=== PATIENT | male | born 1965 | race Caucasian/White ===

== ENCOUNTER 2018-07-20 10:09 | Emergency (ER) | payer SELFPAY ==
[~2018-07-20] VITALS: Ht 180.3 cm; Wt 110.2 kg
[2018-07-20 10:27] VITALS: BP 120/75
[2018-07-20] MEDS ORDERED: NEURONTIN100 MG ORAL (10:27)
[2018-07-20] MEDS ORDERED: Mylanta II UD 30ml ORAL ONE (11:00)
[2018-07-20] MEDS ORDERED: Lidocaine 2% Visc 15ml soln ORAL ONE (11:00)
[2018-07-20] MEDS ORDERED: Dicyclomine HCl 10mg/5ml oral soln ORAL ONE (11:00)
[2018-07-20 11:15] LABS: BASOPHILS % (AUTO) 1.5 % (0.0-2.0); EOSINOPHILS % (AUTO) 2.7 % (0.0-3.0); HEMATOCRIT 40.2 % (42.0-52.0); HEMOGLOBIN 13.3 G/DL (14.2-18.0); LYMPHOCYTES % (AUTO) 23.2 % (20.0-45.0); MEAN CORPUSCULAR VOLUME 90 FL (80-99); NEUTROPHILS % (AUTO) 62.6 % (45.0-75.0); PLATELET COUNT 252 K/UL (150-450); RED BLOOD COUNT 4.48 M/UL (4.70-6.10); RED CELL DISTRIBUTION WIDTH 13.3 % (11.6-14.8); WHITE BLOOD COUNT 9.1 K/UL (4.8-10.8)
[2018-07-20 11:23] LABS: ANION GAP 10 mmol/L (5-15); BLOOD UREA NITROGEN 18 mg/dL (7-18); CALCIUM 7.8 MG/DL (8.5-10.1); CARBON DIOXIDE 24 MMOL/L (21-32); CHLORIDE 105 MMOL/L (98-107); CREATININE 1.5 MG/DL (0.55-1.30); POTASSIUM 5.2 MMOL/L (3.5-5.1); SODIUM 139 MMOL/L (136-145)
[2018-07-20 11:29] LABS: ALANINE AMINOTRANSFERASE 29 U/L (12-78); ALBUMIN 3.1 G/DL (3.4-5.0); ALBUMIN/GLOBULIN RATIO 0.9 (1.0-2.7); ALKALINE PHOSPHATASE 53 U/L (46-116); ASPARTATE AMINO TRANSFERASE 26 U/L (15-37); BILIRUBIN,TOTAL 0.2 MG/DL (0.2-1.0)
[2018-07-20] MEDS ORDERED: RANITIDINE HCL150 MG ORAL (12:04)
[2018-07-20] MEDS ORDERED: ONDANSETRON ODT4 MG BC (12:04)
[2018-07-20 12:16] VITALS: BP 128/80
--- NOTE | 2018-07-21 14:33 | Emergency Room Report ---
History of Present Illness General Chief Complaint: Diarrhea Source: Patient Present Illness HPI 53-year-old male presents ED for evaluation. Patient coming from rehabilitation facility with abdominal pain and diarrhea the last 3 days. Pain is cramping, 8 out of 10, nonradiating. Notes episodes of diarrhea. Denies vomiting. Notes nausea. Denies fevers chills. States that he withdrawing from crack use 3 days. Was told by his sponsor that this is expected for his withdrawal symptoms but patient insisted on coming to the hospital. No other aggravating relieving factors. Denies any other associated symptoms Allergies: Coded Allergies: SULFA (SULFONAMIDE ANTIBIOTICS) (Verified Allergy, Unknown, 07/20/18) Patient History Past Medical History: asthma, psych hx Social History: Reports: alcohol use, drug use; Denies: smoking Immunizations: UTD Reviewed Nursing Documentation: PMH: Agreed; PSxH: Agreed Nursing Documentation-PMH Past Medical History: No History, Except For Hx Asthma: Yes History Of Psychiatric Problem: Yes - bipolar depression Hx Neurological Problems: Yes - neuropaqthy Review of Systems All Other Systems: negative except mentioned in HPI Physical Exam Vital Signs Date Time Temp Pulse Resp B/P (MAP) Pulse Ox O2 Delivery O2 Flow Rate FiO2 07/20/18 10:17 97.9 88 20 136/73 99 Room Air Sp02 EP Interpretation: reviewed, normal General Appearance: no apparent distress, alert, GCS 15, non-toxic Head: normocephalic, atraumatic Eyes: bilateral eye normal inspection, bilateral eye PERRL ENT: hearing grossly normal, normal pharynx, no angioedema, normal voice Neck: full range of motion, supple/symm/no masses Respiratory: chest non-tender, lungs clear, normal breath sounds, speaking full sentences Cardiovascular #1: regular rate, rhythm, no edema Cardiovascular #2: 2+ carotid (R), 2+ carotid (L), 2+ radial (R), 2+ radial (L) , 2+ dorsalis pedis (R), 2+ dorsalis pedis (L) Gastrointestinal: normal bowel sounds, non tender, soft, non-distended, no guarding, no rebound Rectal: deferred Genitourinary: normal inspection, no CVA tenderness Musculoskeletal: back normal, gait/station normal, normal range of motion, non- tender Neurologic: alert, oriented x3, responsive, motor strength/tone normal, sensory intact, speech normal Psychiatric: judgement/insight normal, memory normal, mood/affect normal, no suicidal/homicidal ideation Reflexes: 3+ bicep (R), 3+ bicep (L), 3+ tricep (R), 3+ tricep (L), 3+ knee (R) , 3+ knee (L) Skin: normal color, no rash, warm/dry, well hydrated Lymphatic: no adenopathy Medical Decision Making Diagnostic Impression: Primary Impression: Gastroenteritis Additional Impression: Renal insufficiency ER Course Hospital Course 53-year-old M presents to ED with cramping abdominal pain with vomiting, diarrhea differential diagnosis: gastritis, SBO, cholecystits, gastroenteritis Clinical course Patient placed on stretcher. On threat monitoring analyst. After initial history and physical I ordered labs, IV fluids, Zofran and pepcid Labs - no leukocytosis, Cr 1.5, LFTs normal Upon reassessment, patient states pain has improved. findings consistent with gastroenteritis Patient was told that he has "failing kidneys". I told patient that his creatinine of 1.5 is borderline elevated and needs to be followed. This is not an indication for dialysis. Safe for discharge and close outpatient follow-up. Does not have a PMD. We'll provide referrals I feel this is a highly complex case requiring extensive working including EKG/ Rhythm strip, Xray/CT/US, Blood/urine lab work, repeat exams while in ED, and administration of strong opiates/narcotics for pain control, admission to hospital or close patient follow up. Diagnosis - gastroenteritis, renal insufficiency Stable and discharged to home with prescriptions for Zantac, zofran. Followup with PMD. Return to ED if symptoms recur or worsen Labs Test 07/20/18 11:00 White Blood Count 9.1 K/UL (4.8-10.8) Red Blood Count 4.48 M/UL (4.70-6.10) Hemoglobin 13.3 G/DL (14.2-18.0) Hematocrit 40.2 % (42.0-52.0) Mean Corpuscular Volume 90 FL (80-99) Mean Corpuscular Hemoglobin 29.6 PG (27.0-31.0) Mean Corpuscular Hemoglobin Concent 33.0 G/DL (32.0-36.0) Red Cell Distribution Width 13.3 % (11.6-14.8) Platelet Count 252 K/UL (150-450) Mean Platelet Volume 6.5 FL (6.5-10.1) Neutrophils (%) (Auto) 62.6 % (45.0-75.0) Lymphocytes (%) (Auto) 23.2 % (20.0-45.0) Monocytes (%) (Auto) 10.0 % (1.0-10.0) Eosinophils (%) (Auto) 2.7 % (0.0-3.0) Basophils (%) (Auto) 1.5 % (0.0-2.0) Sodium Level 139 MMOL/L (136-145) Potassium Level 5.2 MMOL/L (3.5-5.1) Chloride Level 105 MMOL/L (98-107) Carbon Dioxide Level 24 MMOL/L (21-32) Anion Gap 10 mmol/L (5-15) Blood Urea Nitrogen 18 mg/dL (7-18) Creatinine 1.5 MG/DL (0.55-1.30) Estimat Glomerular Filtration Rate 48.6 mL/min (>60) Glucose Level 108 MG/DL (74-106) Calcium Level 7.8 MG/DL (8.5-10.1) Total Bilirubin 0.2 MG/DL (0.2-1.0) Aspartate Amino Transf (AST/SGOT) 26 U/L (15-37) Alanine Aminotransferase (ALT/SGPT) 29 U/L (12-78) Alkaline Phosphatase 53 U/L (46-116) Total Protein 6.7 G/DL (6.4-8.2) Albumin 3.1 G/DL (3.4-5.0) Globulin 3.6 g/dL Albumin/Globulin Ratio 0.9 (1.0-2.7) Lipase 167 U/L (73-393) Last Vital Signs Date Time Temp Pulse Resp B/P (MAP) Pulse Ox O2 Delivery O2 Flow Rate FiO2 07/20/18 12:16 97.9 86 16 128/80 99 Room Air Status: improved Disposition: HOME, SELF-CARE Condition: Stable Scripts Ranitidine Hcl* (ZANTAC*) 150 Mg Tablet 150 MG ORAL TWICE A DAY for 30 Days, TAB Prov: Luca Sherman MD 07/20/18 Ondansetron Odt* (ZOFRAN ODT*) 4 Mg Tab.rapdis 4 MG BC EVERY 6 HOURS PRN for Nausea & Vomiting, #10 TAB 0 Refills Prov: Luca Sherman MD 07/20/18 [facility]: [facility] Patient Instructions: Diarrhea, Adult Additional Instructions: please provide patient 3 days of bed rest Luca Sherman MD Jul 21, 2018 14:33
== END 2018-07-20 12:16 | disposition home or self-care (01) ==
LOC: EMR 10:54
DX: K52.9 Noninfective gastroenteritis and colitis, unspecified (principal); N28.9 Disorder of kidney and ureter, unspecified; J45.909 Unspecified asthma, uncomplicated; F31.9 Bipolar disorder, unspecified; Z72.89 Other problems related to lifestyle; Z88.2 Allergy status to sulfonamides
CPT/HCPCS: 36415; 80053; 83690; 85025; 96361; 96374; 96375; 99284; J2405

== ENCOUNTER 2018-07-26 08:46 | Emergency (ER) | payer SELFPAY ==
[~2018-07-26] VITALS: Ht 180.3 cm; Wt 110.2 kg
[~2018-07-26 08:46] MED LIST: NEURONTIN100 MG ORAL; ONDANSETRON ODT4 MG BC; RANITIDINE HCL150 MG ORAL
--- NOTE | 2018-07-26 08:55 | NUR ---
ED Nurse Note: patient walked into ED by himself from rehab center, reports congestion/coughing for 2-3 days and right lower back pain 10/10 when coughing. also patient reports that his left knee is hurting due to arthritis. Per pt, he cannot take any narcotics at this time because he is in rehab center.
[2018-07-26 08:56] VITALS: BP 156/87
[2018-07-26] MEDS ORDERED: Ketorolac 60mg Inj IM ONE (09:15)
[2018-07-26] MEDS ORDERED: Acetaminophen 500mg (ES) tab ORAL ONE (09:15)
[2018-07-26] MEDS ORDERED: Albuterol ud Inhalation HHN ONE (09:30)
--- NOTE | 2018-07-26 09:45 | Emergency Room Report ---
History of Present Illness General Chief Complaint: Back Pain-No Injury Source: Patient Present Illness HPI The patient states that for the past 3 days he has had a cold. He states he has had recurrent coughing. He does smoke tobacco regularly. He denies alcohol or drug use. He states he is currently in a rehabilitation program and is clean. He states that he is noted that every time he coughs he gets pain in his right low back. He states his symptoms only occur with coughing. He denies fever or chills. He does have a history of asthma and uses an albuterol inhaler. He has no other complaints. Allergies: Coded Allergies: SULFA (SULFONAMIDE ANTIBIOTICS) (Verified Allergy, Unknown, 07/20/18) TRAZODONE (Verified Allergy, Unknown, 07/26/18) Patient History Past Medical History: none, see triage record, asthma, other - arthritis, neuropathy, DDD Social History: Reports: smoking; Denies: alcohol use, drug use Reviewed Nursing Documentation: PMH: Agreed; PSxH: Agreed Nursing Documentation-PMH Past Medical History: No History, Except For Hx Asthma: Yes Hx Neurological Problems: Yes - neuropaqthy Review of Systems All Other Systems: negative except mentioned in HPI Physical Exam Vital Signs Date Time Temp Pulse Resp B/P (MAP) Pulse Ox O2 Delivery O2 Flow Rate FiO2 07/26/18 08:51 98.2 96 16 156/87 96 Room Air Sp02 EP Interpretation: reviewed, normal General Appearance: no apparent distress, alert, GCS 15, non-toxic Head: normocephalic, atraumatic Eyes: bilateral eye normal inspection, bilateral eye PERRL ENT: hearing grossly normal, normal pharynx, no angioedema, normal voice Neck: full range of motion, supple/symm/no masses Respiratory: chest non-tender, normal breath sounds, no respiratory distress, no retraction, no accessory muscle use, speaking full sentences, wheezing, expiration Cardiovascular #1: regular rate, rhythm, no edema Gastrointestinal: normal bowel sounds, non tender, soft, non-distended, no guarding, no rebound Rectal: deferred Musculoskeletal: back normal, gait/station normal, normal range of motion, non- tender Neurologic: alert, oriented x3, responsive, motor strength/tone normal, sensory intact, speech normal Psychiatric: judgement/insight normal, memory normal, mood/affect normal, no suicidal/homicidal ideation Skin: normal color, no rash, warm/dry, well hydrated Medical Decision Making Diagnostic Impression: Primary Impression: URI (upper respiratory infection) Additional Impressions: Asthma exacerbation Muscle strain of right upper back ER Course This patient has a clinical presentation consistent with asthma exacerbation. Patient has a history of asthma and has wheezing on physical exam. The patient was given albuterol and Atrovent nebulizer treatments. The patient was also given prednisone orally. The patient had significant improvement in subjective shortness of breath. The patient's lung exam improved significantly. I will also treat the patient with a course of antibiotics as this has been shown to improve the course of an asthma exacerbation. This patient also has a clinical presentation consistent with muscle strain/ pain during coughing. There are no red flags on physical exam or history that would make me concerned for underlying fracture. Therefore, I do not feel that I need to obtain imaging studies. The patient has pain with range of motion and has tenderness to palpation along the muscle. There is no evidence of compartment syndrome. There is no neurologic deficit. The patient was instructed on supportive home measures. No emergency medical condition was identified. The patient was given close return precautions and followup instructions. Chest X-Ray Diagnostic Results Chest X-Ray Diagnostic Results : Chest X-Ray Ordered: Yes # of Views/Limited/Complete: 1 View Indication: Other - cough EP Interpretation: Yes Interpretation: no consolidation, no effusion, no pneumothorax, no acute cardiopulmonary disease Impression: No acute disease Electronically Signed by: Beth Cali DO Last Vital Signs Date Time Temp Pulse Resp B/P (MAP) Pulse Ox O2 Delivery O2 Flow Rate FiO2 07/26/18 08:56 98.2 96 16 156/87 96 Room Air Status: improved Disposition: HOME, SELF-CARE Condition: Improved Scripts Lidocaine (Lidoderm) 1 Each Adh..patch 1 PATCH TOPIC see instructions, #7 PATCH 0 Refills Patch(es) may remain in place for up to 12 hours in any 24-hour period. Prov: Beth Cali DO 07/26/18 Albuterol Sulfate* (ALBUTEROL SULFATE MDI*) 8.5 Gm Hfa.aer.ad 2 PUFF INH Q4H PRN for cough/wheezing, #1 EA 0 Refills Prov: Beth Cali DO 2/5/19 Prednisone* (PREDNISONE*) 20 Mg Tablet 60 MG ORAL DAILY, #12 TAB Prov: Beth Cali DO 07/26/18 Azithromycin* (ZITHROMAX*) 250 Mg Tablet 250 MG ORAL see instructions, #6 TAB 0 Refills Take two tables once daily for 1 day, then one tablet once daily for 4 days. Prov: Beth Cali DO 07/26/18 Referrals: NOT CHOSEN [facility]/,REFERRING (PCP) Beth Cali DO Jul 26, 2018 09:45
[2018-07-26] MEDS ORDERED: ALBUTEROL SULF8.5 GM INH (09:49)
[2018-07-26] MEDS ORDERED: PREDNISONE20 MG ORAL (09:49)
[2018-07-26] MEDS ORDERED: ZITHROMAX250 MG ORAL (09:49)
[2018-07-26] MEDS ORDERED: LIDODERM700 M1 TOPIC (09:57)
--- NOTE | 2018-07-26 10:35 | NUR ---
ED Nurse Note: pt cleared to d/c per ER provider order, pt discharge instruction provided w/prescription given to the patient, pt advised to follow up with pcp or return to ed if s/s worsen or new s/s develop, pt education done via discussion and hand out, patient verbalized understanding. ID wristband removed, pt vss, ambulatory w/ steady gait, respiration even and unlabored, airway intact, pt left with all belongings.
[2018-07-26 10:52] VITALS: BP 156/87
--- NOTE | 2018-07-26 11:27 | Diagnostic Imaging Report ---
Indication: Cough Comparison: None A single view chest radiograph was obtained. Findings: Cardiomediastinal appearance is within normal limits for age. The lungs are clear. Pulmonary vascularity is appropriate. The diaphragmatic contour is smooth and costophrenic angles are sharp. No pleural effusions are identified. The bones are unremarkable. Impression: No acute findings
== END 2018-07-26 10:35 | disposition home or self-care (01) ==
LOC: EMR 09:16
DX: J06.9 Acute upper respiratory infection, unspecified (principal); J45.901 Unspecified asthma with (acute) exacerbation; S29.012A Strain of muscle and tendon of back wall of thorax, initial encounter; X58.XXXA Exposure to other specified factors, initial encounter; Y92.9 Unspecified place or not applicable; Z88.2 Allergy status to sulfonamides; Z88.8 Allergy status to other drugs, medicaments and biological substances
CPT/HCPCS: 71045; 94640; 94664; 96372; 99284; J7512

== ENCOUNTER 2018-07-29 07:58 | Emergency (ER) | payer MEDICAID ==
[~2018-07-29] VITALS: Ht 180.3 cm; Wt 113.4 kg
[~2018-07-29 07:58] MED LIST changes: +ALBUTEROL SULF8.5 GM INH; +LIDODERM700 M1 TOPIC; +PREDNISONE20 MG ORAL; +ZITHROMAX250 MG ORAL
[2018-07-29 08:05] VITALS: BP 161/102
--- NOTE | 2018-07-29 08:05 | NUR ---
ED Nurse Note: PT WALKED IN TO ER TODAY FROM [facility]. AOX4. PT C/O SOB AND WHEEZING X 4 DAYS AGO. RR16 @ 96% O2 SAT AT BEDSIDE. INSPIRATORY AND EXPIRATORY WHEEZING AUSCULTATED IN ALL LOBES BUT NO SIGNS OF RESPIRATORY DISTRESS OR RETRACTIONS NOTED. PT ALSO C/O "CYST" BY RIGHT SIDE RIBS. ON ASSESSMENT, NO SIGNS OF A CYST. SKIN CLEAN, DRY, AND INTACT.
--- NOTE | 2018-07-29 08:39 | NUR ---
ED Nurse Note: US AT BEDSIDE.
[2018-07-29] MEDS ORDERED: Solu-MEDROL 125mg Inj IVP ONE (08:45)
--- NOTE | 2018-07-29 08:45 | Emergency Room Report ---
History of Present Illness General Chief Complaint: Asthma Source: Patient Present Illness HPI Patient has history of schizophrenia and bipolar disorder. Patient also is a chronic smoker. I suspect he has a history of COPD. Patient states that he's been coughing a lot last few days. He was in emergency department07/20 at that time had diarrhea and abdominal discomfort had a complete workup including blood testing which was negative. He then returned a couple days ago July 26 for cough congestion. Was given prescription for Zithromax albuterol prednisone. He states that he continues to cough and is wheezing and short of breath. He also complains of a sensation of fullness in his right upper quadrant. He states that he has a history of assists in his back which has migrated to his right upper quadrant. He states that he has had workup in the past at other hospitals in [place] where he was told that he had severe condition and require surgery. He states that if I would just do a imaging testing I would know what to do. He denies any nausea vomiting diarrhea this time. He does appear to have scattered thoughts. No other complaints are noted.No other modifying factors. No other associated signs and symptoms. No other complaints were noted. Patient denies suicidal homicidal ideation auditory or visual hallucinations. Appears be appropriate. Allergies: Coded Allergies: SULFA (SULFONAMIDE ANTIBIOTICS) (Verified Allergy, Unknown, 07/20/18) TRAZODONE (Verified Allergy, Unknown, 07/26/18) Patient History Past Medical History: COPD, psych hx - Schizophrenia Past Surgical History: none Pertinent Family History: none Social History: Reports: smoking; Denies: drug use Reviewed Nursing Documentation: PMH: Agreed; PSxH: Agreed Nursing Documentation-PMH Past Medical History: No History, Except For Hx Asthma: Yes Hx Neurological Problems: Yes - neuropaqthy Review of Systems All Other Systems: negative except mentioned in HPI Physical Exam Vital Signs Date Time Temp Pulse Resp B/P (MAP) Pulse Ox O2 Delivery O2 Flow Rate FiO2 07/29/18 08:01 97.9 83 20 160/92 92 Room Air Sp02 EP Interpretation: reviewed, normal General Appearance: alert, mild distress Head: atraumatic Eyes: bilateral eye normal inspection ENT: normal ENT inspection, hearing grossly normal, normal voice Neck: normal inspection, full range of motion, supple, no bony tend Respiratory: no retraction, decreased breath sounds, accessory muscle use, wheezing, expiration, inspiration Cardiovascular #1: regular rate, rhythm, no edema Gastrointestinal: normal inspection, normal bowel sounds, non tender, soft, no guarding, no hernia Genitourinary: no CVA tenderness Musculoskeletal: normal inspection, back normal, normal range of motion Neurologic: normal inspection, alert, responsive, speech normal Psychiatric: normal inspection, judgement/insight normal, mood/affect normal Skin: normal inspection, normal color, no rash Medical Decision Making Diagnostic Impression: Primary Impression: COPD (chronic obstructive pulmonary disease) Additional Impressions: Renal cyst Hematuria ER Course Patient presents emergency department today complaining of shortness of breath. Differential diagnoses include acute pneumonia, CHF, acute coronary syndrome, pneumothorax, asthma, COPD flare, just to name a few.Given the severity of the patient's presentation I felt this is a highly complex patient. This patient required extensive workup. Patient laboratory and exam is consistent with acute COPD exacerbation. Patient was given multiple doses of urinary Atrovent as well as Solu-Medrol was improvement symptoms. Patient is able to ambulate without difficulty O2 saturation the proximal benign a percent on room air. Patient's chest x-ray was negative per laboratory workup was also normal. Patient states that he had flank pain and right upper quadrant abdominal pain at which time laboratory workup was obtained and abdominal ultrasound performed which was negative except for evidence of right renal cyst which patient has had in the past. Patient was given Chuy dropper Atrovent was immediate improvement symptoms. Patient will be switched to Cipro because he has evidence of blood in his urine. He was given a prescription for prednisone on a previous visit. He was given albuterol refill at this time. As well as nicotine patches. He is was advised to stop smoking.Patient is advised to follow up with primary doctor in 2-3 days and return the emergency room for any worsening symptoms and as needed. He was advised have outpatient follow-up for his renal cyst and is hematuria. Labs Test 07/29/18 08:30 07/29/18 09:16 White Blood Count 7.6 K/UL (4.8-10.8) Red Blood Count 4.33 M/UL (4.70-6.10) Hemoglobin 12.6 G/DL (14.2-18.0) Hematocrit 38.6 % (42.0-52.0) Mean Corpuscular Volume 89 FL (80-99) Mean Corpuscular Hemoglobin 29.0 PG (27.0-31.0) Mean Corpuscular Hemoglobin Concent 32.5 G/DL (32.0-36.0) Red Cell Distribution Width 13.6 % (11.6-14.8) Platelet Count 217 K/UL (150-450) Mean Platelet Volume 5.7 FL (6.5-10.1) Neutrophils (%) (Auto) 56.2 % (45.0-75.0) Lymphocytes (%) (Auto) 23.7 % (20.0-45.0) Monocytes (%) (Auto) 13.4 % (1.0-10.0) Eosinophils (%) (Auto) 5.6 % (0.0-3.0) Basophils (%) (Auto) 1.1 % (0.0-2.0) Sodium Level 138 MMOL/L (136-145) Potassium Level 4.3 MMOL/L (3.5-5.1) Chloride Level 101 MMOL/L (98-107) Carbon Dioxide Level 28 MMOL/L (21-32) Anion Gap 9 mmol/L (5-15) Blood Urea Nitrogen 26 mg/dL (7-18) Creatinine 1.5 MG/DL (0.55-1.30) Estimat Glomerular Filtration Rate 48.6 mL/min (>60) Glucose Level 100 MG/DL (74-106) Calcium Level 8.4 MG/DL (8.5-10.1) Total Bilirubin 0.4 MG/DL (0.2-1.0) Aspartate Amino Transf (AST/SGOT) 23 U/L (15-37) Alanine Aminotransferase (ALT/SGPT) 27 U/L (12-78) Alkaline Phosphatase 57 U/L (46-116) Total Protein 7.4 G/DL (6.4-8.2) Albumin 3.4 G/DL (3.4-5.0) Globulin 4.0 g/dL Albumin/Globulin Ratio 0.9 (1.0-2.7) Lipase 121 U/L (73-393) Urine Color Pale yellow Urine Appearance Slightly cloudy Urine pH 7 (4.5-8.0) Urine Specific [place] 1.010 (1.005-1.035) Urine Protein 2+ (NEGATIVE) Urine Glucose (UA) Negative (NEGATIVE) Urine Ketones Negative (NEGATIVE) Urine Blood 5+ (NEGATIVE) Urine Nitrite Negative (NEGATIVE) Urine Bilirubin Negative (NEGATIVE) Urine Urobilinogen Normal MG/DL (0.0-1.0) Urine Leukocyte Esterase 1+ (NEGATIVE) Urine RBC Tntc /HPF (0 - 0) Urine WBC 0-2 /HPF (0 - 0) Urine Squamous Epithelial Cells None /LPF (NONE/OCC) Urine Bacteria None /HPF (NONE) Chest X-Ray Diagnostic Results Chest X-Ray Diagnostic Results : Chest X-Ray Ordered: Yes Indication: Shortness of Breath EP Interpretation: No Impression: No acute disease CT/MRI/US Diagnostic Results CT/MRI/US Diagnostic Results : Imaging Test Ordered: Renal ultrasound: Positive cyst right kidney Last Vital Signs Date Time Temp Pulse Resp B/P (MAP) Pulse Ox O2 Delivery O2 Flow Rate FiO2 07/29/18 08:05 82 16 Room Air 07/29/18 08:05 98.2 161/102 96 Status: improved Disposition: HOME, SELF-CARE Condition: Stable Scripts Nicotine 14MG Patch* (NICODERM CQ 14MG*) 1 Each Patch.td24 1 EACH TD DAILY for 30 Days, EA Prov: Meek Escobedo MD 07/29/18 Albuterol Sulfate* (ALBUTEROL SULFATE MDI*) 8.5 Gm Hfa.aer.ad 2 PUFF INH Q4H PRN for cough/wheezing, #1 EA 0 Refills Prov: Meek Escobedo MD 07/29/18 Ciprofloxacin Hcl* (CIPROFLOXACIN HCL*) 500 Mg Tablet 500 MG ORAL Q12H, #14 TAB 0 Refills Prov: Meek Escobedo MD 07/29/18 Referrals: NOT CHOSEN [facility]/,REFERRING (PCP) Meek Escobedo MD Jul 29, 2018 08:45
--- NOTE | 2018-07-29 08:47 | NUR ---
ED Nurse Note: RT AT BEDSIDE.
[2018-07-29] MEDS: Albuterol/Ipratropium 3ml neb HHN SCH ×3 (08:58→09:49)
[2018-07-29 09:11] LABS: BASOPHILS % (AUTO) 1.1 % (0.0-2.0); EOSINOPHILS % (AUTO) 5.6 % (0.0-3.0); HEMATOCRIT 38.6 % (42.0-52.0); HEMOGLOBIN 12.6 G/DL (14.2-18.0); LYMPHOCYTES % (AUTO) 23.7 % (20.0-45.0); MEAN CORPUSCULAR VOLUME 89 FL (80-99); MONOCYTES % (AUTO) 13.4 % (1.0-10.0); NEUTROPHILS % (AUTO) 56.2 % (45.0-75.0); PLATELET COUNT 217 K/UL (150-450); RED BLOOD COUNT 4.33 M/UL (4.70-6.10); RED CELL DISTRIBUTION WIDTH 13.6 % (11.6-14.8); WHITE BLOOD COUNT 7.6 K/UL (4.8-10.8)
[2018-07-29 09:21] LABS: ANION GAP 9 mmol/L (5-15); BLOOD UREA NITROGEN 26 mg/dL (7-18); CALCIUM 8.4 MG/DL (8.5-10.1); CARBON DIOXIDE 28 MMOL/L (21-32); CHLORIDE 101 MMOL/L (98-107); CREATININE 1.5 MG/DL (0.55-1.30); POTASSIUM 4.3 MMOL/L (3.5-5.1); SODIUM 138 MMOL/L (136-145)
[2018-07-29 09:26] LABS: ALANINE AMINOTRANSFERASE 27 U/L (12-78); ALBUMIN 3.4 G/DL (3.4-5.0); ALBUMIN/GLOBULIN RATIO 0.9 (1.0-2.7); ALKALINE PHOSPHATASE 57 U/L (46-116); ASPARTATE AMINO TRANSFERASE 23 U/L (15-37); BILIRUBIN,TOTAL 0.4 MG/DL (0.2-1.0)
--- NOTE | 2018-07-29 09:49 | Diagnostic Imaging Report ---
Indication:Abdominal pain Technique: Grayscale and duplex Doppler imaging of the abdomen performed. Comparison: None Findings: The liver is enlarged measuring 21 cm. The gallbladder is unremarkable. The demonstrated part of the pancreas, aorta and IVC show no abnormalities although portions obscured by bowel gas. Both kidneys show no hydronephrosis. There is a probable tiny cyst in the midpole the right kidney. CBD is between 5 and 6 mm The spleen is normal in size. There is no biliary ductal dilatation identified. Doppler evaluation of the main portal vein shows patency. There is no ascites. No hydronephrosis seen. Impression: Hepatomegaly. Probable tiny cyst right kidney
--- NOTE | 2018-07-29 09:50 | Diagnostic Imaging Report ---
Indication: Cough Comparison: 07/26/2018 A single view chest radiograph was obtained. Findings: Cardiomediastinal appearance is within normal limits for age. The lungs are clear. Pulmonary vascularity is appropriate. The diaphragmatic contour is smooth and costophrenic angles are sharp. No pleural effusions are identified. The bones are unremarkable. Impression: No acute findings
--- NOTE | 2018-07-29 09:55 | NUR ---
ED Nurse Note: URINE SENT TO LAB.
[2018-07-29 10:04] VITALS: BP 144/84
[2018-07-29 10:06] LABS: APPEARANCE,URINE SLIGHTLY CLOUDY; BILIRUBIN, URINE NEGATIVE (NEGATIVE); COLOR,URINE PALE YELLOW; GLUCOSE, URINE (UA) NEGATIVE (NEGATIVE); KETONES,URINE NEGATIVE (NEGATIVE); LEUKOCYTE ESTERASE ,URINE 1+ (NEGATIVE); NITRITE,URINE NEGATIVE (NEGATIVE); PH,URINE 7 (4.5-8.0); PROTEIN,URINE 2+ (NEGATIVE); UROBILINOGEN,URINE NORMAL MG/DL (0.0-1.0)
[2018-07-29] MEDS ORDERED: Ketorolac 30mg Inj ONE (10:35)
[2018-07-29] MEDS ORDERED: ALBUTEROL SULF8.5 GM INH (10:36)
[2018-07-29] MEDS ORDERED: CIPROFLOXACIN500 M2 ORAL (10:36)
[2018-07-29] MEDS ORDERED: Ketorolac 30mg Inj IV ONE (10:45)
[2018-07-29 10:46] VITALS: BP 136/86
[2018-07-29] MEDS ORDERED: NICODERM CQ1 EAC1 TD (10:47)
--- NOTE | 2018-07-29 10:47 | NUR ---
ED Nurse Note: PT LAYING PEACEFULLY IN BED IN NAD. AOX4. PRESCRIPTIONS AND DISCHARGE PAPERWORK EXPLAINED TO PT. PT VERBALIZES UNDERSTANDING AND ALL QUESTIONS ANSWERED. PRESCRIPTIONS AND DISCHARGE PAPERWORK GIVEN TO PT, IV AND ID WRISTBAND REMOVED. PT WALKED OUT OF ER WITH STEADY GAIT AND ALL BELONGINGS.
== END 2018-07-29 10:50 | disposition home or self-care (01) ==
LOC: EMR 08:22
DX: J44.9 Chronic obstructive pulmonary disease, unspecified (principal); N28.1 Cyst of kidney, acquired; R31.9 Hematuria, unspecified; Z88.2 Allergy status to sulfonamides; Z88.8 Allergy status to other drugs, medicaments and biological substances
CPT/HCPCS: 36415; 71045; 76700; 80053; 81003; 83690; 85025; 94640; 96374; 96375; 99284; J1885; J2930; J7620

== ENCOUNTER 2018-08-31 12:20 | Emergency (ER) | payer MEDICAID ==
[~2018-08-31] VITALS: Ht 180.3 cm; Wt 122.5 kg
[~2018-08-31 12:20] MED LIST changes: +CIPROFLOXACIN500 M2 ORAL; +NICODERM CQ1 EAC1 TD
[2018-08-31 12:33] VITALS: BP 129/72
--- NOTE | 2018-08-31 12:33 | NUR ---
ED Nurse Note: PT. AAOX4. AMBULATORY. CAME IN TO ER DUE TO SBP'S OF 160'S -180'S.
[2018-08-31 12:50] VITALS: BP 129/72
--- NOTE | 2018-08-31 12:50 | NUR ---
AMA: AFTER THE BP TAKEN AT TRIAGE PT. DECIDED TO LEAVE BECAUSE 129/74 IS NORMAL. DID NOT WANT TO SEE THE DOCTOR DUE TO THE POSSIBLE BILL HE WILL BE PAYING. DR. Ramos MENDEZ. PT. SIGNED AMA. NO S/S OF ACUTE DISTRESS NOTED AT THIS TIME SEE AMA FORM.
== END 2018-08-31 12:50 | disposition left against medical advice (07) ==
LOC: EMR 12:38
DX: Z53.21 Procedure and treatment not carried out due to patient leaving prior to being seen by health care provider (principal)

== ENCOUNTER 2018-09-13 11:47 | Emergency (ER) | payer MEDICAID ==
[~2018-09-13] VITALS: Ht 180.3 cm; Wt 117.9 kg
[2018-09-13 12:00] VITALS: BP 114/53
--- NOTE | 2018-09-13 12:00 | NUR ---
ED Nurse Note: AMBULATED IN TO ER DUE TO BODYACHE, COUGHING, CHILLS WITH FEVER X 1 DAY. 99F ORAL TEMP AT THE BEDSIDE. A/OX4. DENIES CP AND SOB.
--- NOTE | 2018-09-13 12:10 | NUR ---
ED Nurse Note: ALL BLOOD SPECIMENS AND URINE SENT DOWN TO THE LAB.
[2018-09-13 12:26] LABS: EOSINOPHILS % (AUTO) 1.1 % (0.0-3.0); HEMATOCRIT 41.7 % (42.0-52.0); LYMPHOCYTES % (AUTO) 9.5 % (20.0-45.0); MEAN CORPUSCULAR VOLUME 87 FL (80-99); MONOCYTES % (AUTO) 13.6 % (1.0-10.0); NEUTROPHILS % (AUTO) 74.8 % (45.0-75.0); PLATELET COUNT 221 K/UL (150-450); RED BLOOD COUNT 4.78 M/UL (4.70-6.10); RED CELL DISTRIBUTION WIDTH 13.2 % (11.6-14.8); WHITE BLOOD COUNT 11.6 K/UL (4.8-10.8)
--- NOTE | 2018-09-13 12:28 | Emergency Room Report ---
History of Present Illness General Chief Complaint: Flu Like Symptoms Source: Patient, Medical Record Present Illness HPI 53yo M with h/o HTN c/o body aches, fatigue, nausea, subjective fever since last night. He denies urinary symptoms, does report a cough but no hemoptysis, and reports he is currently at a drug rehabilitation facility for crack cocaine but has not relapsed recently. Allergies: Coded Allergies: QUETIAPINE (Verified Allergy, Unknown, 09/13/18) SULFA (SULFONAMIDE ANTIBIOTICS) (Verified Allergy, Unknown, 07/20/18) TRAZODONE (Verified Allergy, Unknown, 07/26/18) Patient History Past Medical History: see triage record Reviewed Nursing Documentation: PMH: Agreed; PSxH: Agreed Nursing Documentation-PMH Past Medical History: No History, Except For Hx Asthma: Yes Hx COPD: Yes Hx Neurological Problems: Yes - neuropaqthy Review of Systems All Other Systems: negative except mentioned in HPI Physical Exam Vital Signs Date Time Temp Pulse Resp B/P (MAP) Pulse Ox O2 Delivery O2 Flow Rate FiO2 09/13/18 11:54 99.0 94 16 117/75 96 Room Air Sp02 EP Interpretation: reviewed, normal General Appearance: no apparent distress, alert, non-toxic Head: normocephalic Eyes: bilateral eye normal inspection, bilateral eye PERRL, bilateral eye EOMI ENT: normal ENT inspection, hearing grossly normal, normal pharynx, no angioedema, normal voice, moist mucus membranes Neck: normal inspection, full range of motion, supple, supple/symm/no masses Respiratory: chest non-tender, lungs clear, normal breath sounds, no rhonchi, no respiratory distress, no retraction, no accessory muscle use, no wheezing, chest symmetrical, palpation of chest normal Cardiovascular #1: normal peripheral pulses, regular rate, rhythm Cardiovascular #2: 2+ radial (R), 2+ radial (L) Gastrointestinal: normal inspection, non tender, soft, no mass, no guarding, no rebound Rectal: deferred Genitourinary: normal inspection, no CVA tenderness Musculoskeletal: back normal, gait/station normal, normal range of motion, non- tender, no calf tenderness Neurologic: alert, responsive, 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, motor strength/tone normal, sensory intact, speech normal Psychiatric: judgement/insight normal, memory normal, mood/affect normal Skin: normal color, no rash, warm/dry, normal turgor Lymphatic: no adenopathy Medical Decision Making Diagnostic Impression: Primary Impression: Influenza-like symptoms ER Course Patient is well-appearing, although flu swab is negative, symptoms consistent with influenza, chest x-ray is unremarkable, urine test also fairly unremarkable other than small amount of blood, patient does not have renal colic symptomatology, does appear slightly dehydrated, was given PO fluids, meds , will dc. Rhythm Strip Diag. Results Rhythm Strip Time: 13:24 EP Interpretation: yes Rate: 83 Rhythm: NSR, no PVC's, no ectopy Chest X-Ray Diagnostic Results Chest X-Ray Diagnostic Results : Chest X-Ray Ordered: Yes # of Views/Limited/Complete: 1 View Indication: Other - pain EP Interpretation: Yes Interpretation: no consolidation, no effusion, no pneumothorax, no acute cardiopulmonary disease Impression: No acute disease Electronically Signed by: Chelly Daniel MD Last Vital Signs Date Time Temp Pulse Resp B/P (MAP) Pulse Ox O2 Delivery O2 Flow Rate FiO2 09/13/18 12:00 94 16 Room Air 09/13/18 12:00 99.0 114/53 96 Disposition: HOME, SELF-CARE CHELLY DANIEL M.D Sep 13, 2018 12:28
[2018-09-13 12:30] LABS: BILIRUBIN, URINE NEGATIVE (NEGATIVE); GLUCOSE, URINE (UA) NEGATIVE (NEGATIVE); KETONES,URINE NEGATIVE (NEGATIVE); LEUKOCYTE ESTERASE ,URINE 1+ (NEGATIVE); NITRITE,URINE NEGATIVE (NEGATIVE); PH,URINE 5 (4.5-8.0); PROTEIN,URINE 2+ (NEGATIVE); UROBILINOGEN,URINE NORMAL MG/DL (0.0-1.0)
[2018-09-13 12:31] LABS: APPEARANCE,URINE SLIGHTLY CLOUDY; COLOR,URINE YELLOW
[2018-09-13 12:38] LABS: ANION GAP 13 mmol/L (5-15); BLOOD UREA NITROGEN 22 mg/dL (7-18); CALCIUM 9.2 MG/DL (8.5-10.1); CARBON DIOXIDE 25 MMOL/L (21-32); CHLORIDE 99 MMOL/L (98-107); CREATININE 1.5 MG/DL (0.55-1.30); POTASSIUM 4.5 MMOL/L (3.5-5.1); SODIUM 137 MMOL/L (136-145)
[2018-09-13 12:42] LABS: ALANINE AMINOTRANSFERASE 17 U/L (12-78); ALBUMIN 3.5 G/DL (3.4-5.0); ALBUMIN/GLOBULIN RATIO 0.8 (1.0-2.7); ALKALINE PHOSPHATASE 51 U/L (46-116); ASPARTATE AMINO TRANSFERASE 20 U/L (15-37); BILIRUBIN,TOTAL 0.5 MG/DL (0.2-1.0)
[2018-09-13] MEDS ORDERED: TAMIFLU75 MG ORAL (13:27)
[2018-09-13] MEDS ORDERED: ACETAMINOPHEN325 M1 ORAL (13:27)
[2018-09-13 13:38] VITALS: BP 109/64
[2018-09-13 13:39] VITALS: BP 109/64
--- NOTE | 2018-09-13 13:39 | NUR ---
ED Nurse Note: Pt cleared by health care Provider for discharge. DC instructions/prescription was given and explained to pt and verbalized understanding of teachings. All medical deviecs such as ID band IV removed. Pt is AAO x4, ambulatory and left with all personal belongings.
--- NOTE | 2018-09-13 19:16 | Diagnostic Imaging Report ---
Indication: Cough Comparison: 07/29/2018 A single view chest radiograph was obtained. Findings: Cardiomediastinal appearance is within normal limits for age. The lungs are clear. Pulmonary vascularity is appropriate. The diaphragmatic contour is smooth and costophrenic angles are sharp. No pleural effusions are identified. The bones are unremarkable. Impression: No acute findings
== END 2018-09-13 13:40 | disposition home or self-care (01) ==
LOC: EMR 12:25
DX: J11.1 Influenza due to unidentified influenza virus with other respiratory manifestations (principal); J44.9 Chronic obstructive pulmonary disease, unspecified; G62.9 Polyneuropathy, unspecified; Z88.2 Allergy status to sulfonamides; Z88.8 Allergy status to other drugs, medicaments and biological substances
CPT/HCPCS: 36415; 71045; 80053; 81003; 84484; 85025; 86710; 96360; 99284

== ENCOUNTER 2018-11-10 11:59 | Emergency (ER) | payer MEDICAID ==
[~2018-11-10] VITALS: Ht 180.3 cm; Wt 118.8 kg
[~2018-11-10 11:59] MED LIST changes: +ACETAMINOPHEN325 M1 ORAL; +TAMIFLU75 MG ORAL
[2018-11-10 12:15] VITALS: BP 126/82
[2018-11-10] MEDS: Albuterol ud Inhalation HHN SCH ×3 (12:27→13:06)
[2018-11-10] MEDS: Ipratropium 0.02% Inh Soln 2.5ml UD HHN SCH ×3 (12:27→13:06)
[2018-11-10] MEDS ORDERED: PREDNISONE20 MG ORAL (13:05)
[2018-11-10] MEDS ORDERED: CEPHALEXIN500 MG ORAL (13:05)
[2018-11-10] MEDS ORDERED: ZITHROMAX250 MG ORAL (13:05)
[2018-11-10] MEDS ORDERED: ALBUTEROL SULF8.5 GM INH (13:05)
[2018-11-10 13:17] VITALS: BP 122/76
[2018-11-10] MEDS ORDERED: ALBUTEROL2.5 MG/3 M HHN (13:18)
[2018-11-10] MEDS ORDERED: EASY NEB COMPR1 EACH MC (13:18)
--- NOTE | 2018-11-10 14:05 | Emergency Room Report ---
History of Present Illness General Chief Complaint: Upper Respiratory Illness Source: Patient Present Illness HPI 53-year-old male presents ED for evaluation. Complaining of cough and wheezing for the last 3 days. History of COPD. Cough is dry. Denies fevers or chills. Denies chest pain. Also notes multiple insect bites all over his body. States they're very itchy. Denies pain. No other aggravating relieving factors. Denies any other associated symptoms Allergies: Coded Allergies: QUETIAPINE (Verified Allergy, Unknown, 09/13/18) SULFA (SULFONAMIDE ANTIBIOTICS) (Verified Allergy, Unknown, 07/20/18) TRAZODONE (Verified Allergy, Unknown, 07/26/18) Patient History Past Medical History: HTN, COPD, other - neuropathy Past Surgical History: none Pertinent Family History: none Social History: Denies: smoking, alcohol use, drug use Immunizations: UTD Reviewed Nursing Documentation: PMH: Agreed; PSxH: Agreed Nursing Documentation-PMH Past Medical History: No History, Except For Hx Cardiac Problems: Yes - hyperlipidemia Hx Hypertension: Yes Hx Asthma: Yes Hx COPD: Yes - and emphysema Hx Neurological Problems: Yes - neuropaqthy Review of Systems All Other Systems: negative except mentioned in HPI Physical Exam Vital Signs Date Time Temp Pulse Resp B/P (MAP) Pulse Ox O2 Delivery O2 Flow Rate FiO2 11/10/18 12:03 97.9 100 18 120/80 (93) 93 Room Air 11/10/18 12:29 21 Sp02 EP Interpretation: reviewed, normal General Appearance: no apparent distress, alert, GCS 15, non-toxic Head: normocephalic Eyes: bilateral eye normal inspection, bilateral eye PERRL ENT: normal ENT inspection Neck: normal inspection Respiratory: decreased breath sounds, wheezing Cardiovascular #1: regular rate, rhythm, no edema Gastrointestinal: normal bowel sounds, non tender, soft, non-distended, no guarding, no rebound Rectal: deferred Genitourinary: no CVA tenderness Musculoskeletal: normal inspection Neurologic: alert, oriented x3, responsive, motor strength/tone normal, sensory intact, speech normal Psychiatric: normal inspection Skin: other - multiple raised insect bites diffuse to chest, arms and legs. erythematous. no fluctuance or discharge Lymphatic: normal inspection Medical Decision Making Diagnostic Impression: Primary Impression: Insect bites Qualified Codes: W57.XXXA - Bitten or stung by nonvenomous insect and other nonvenomous arthropods, initial encounter Additional Impression: COPD (chronic obstructive pulmonary disease) Qualified Codes: J44.9 - Chronic obstructive pulmonary disease, unspecified ER Course Hospital Course 53-year-old male presents to ED complaining of cough, wheezing, rash Differential diagnoses include: URI, bronchitis, asthma/COPD, pneumonia Clinical course Patient placed on stretcher. After initial history and physical I ordered prednisone and nebulizer treatment. Upon reassessment patient states cough and symptoms have improved. Findings consistent with bronchitis. History of COPD we'll prescribe antibiotics. Patient will also be prescribed antibiotics for diffuse insect bites. We'll also provide prescriptions for nebulizer, albuterol, steroids. Patient safe for discharge with close outpatient follow-up. We'll provide referrals Diagnosis - COPD, insect bites Stable and discharged home with prescriptions for Rx albuterol, prednisone, keflex, azithromycin. Instructed to followup with PMD. Return to ED if symptoms recur or worsen Last Vital Signs Date Time Temp Pulse Resp B/P (MAP) Pulse Ox O2 Delivery O2 Flow Rate FiO2 11/10/18 13:32 92 22 98 Room Air 21 11/10/18 13:17 98.2 122/76 Status: improved Disposition: HOME, SELF-CARE Condition: Stable Scripts Albuterol Sulfate* (ALBUTEROL SULFATE HHN*) 2.5 Mg/3 Ml Vial.neb 2.5 MG HHN Q4H PRN for Shortness of Breath, #25 VIAL Prov: Luca Sherman MD 11/10/18 Nebulizer and Compressor (Easy Neb Compressor Nebulizer) 1 Each Each EACH , #1 Prov: Luca Sherman MD 11/10/18 Prednisone* (PREDNISONE*) 20 Mg Tablet 40 MG ORAL DAILY, #10 TAB Prov: Luca Sherman MD 11/10/18 Albuterol Sulfate* (ALBUTEROL SULFATE MDI*) 8.5 Gm Hfa.aer.ad 2 PUFF INH Q6H, #1 EA 0 Refills Prov: Luca Sherman MD 11/10/18 Azithromycin* (ZITHROMAX*) 250 Mg Tablet 250 MG ORAL DAILY, #6 TAB 0 Refills Take two tables once daily for 1 day, then one tablet once daily for 4 days. Prov: Luca Sherman MD 11/10/18 Cephalexin* (KEFLEX*) 500 Mg Capsule 500 MG ORAL EVERY 6 HOURS, #7 CAP Prov: Luca Sherman MD 11/10/18 Referrals: [facility] Patient Instructions: Chronic Obstructive Pulmonary Disease Exacerbation, Easy- to-Read Luca Sherman MD November 10, 2018 14:05
== END 2018-11-10 13:17 | disposition home or self-care (01) ==
LOC: EMR 12:41
DX: T14.8XXA Other injury of unspecified body region, initial encounter (principal); W57.XXXA Bitten or stung by nonvenomous insect and other nonvenomous arthropods, initial encounter; Y92.9 Unspecified place or not applicable; Z88.2 Allergy status to sulfonamides; Z88.8 Allergy status to other drugs, medicaments and biological substances; I10 Essential (primary) hypertension
CPT/HCPCS: 94640; 94664; 99284; J7512